=== PATIENT | male | born 1960 | race Caucasian/White ===

== ENCOUNTER 2018-01-01 07:24 | Outpatient (CLI) | payer OTHER ==
[~2018-01-01 07:24] MED LIST: GAS RELIEF125 M1 PO; IMODIUM A-D2 M2 PO; LOPERAMIDE2 MG PO; PERCOCET 5-3251 EACH PO; PROTONIX40 MG PO; QUESTRAN PACKET4 GM PO
== END 2018-01-01 07:40 | disposition home or self-care (01) ==
LOC: TOM 07:24
DX: K51.018 Ulcerative (chronic) pancolitis with other complication (principal)

== ENCOUNTER 2024-07-06 21:40 | Inpatient (IN) | payer OTHER ==
[~2024-07-06] VITALS: Ht 152.4 cm; Wt 74.8 kg
[~2024-07-06 21:40] MED LIST changes: +CIPRO500 MG PO; +CLONAZEPAM0.5 MG PO; +FENOFIBRATE150 MG PO; +METRONIDAZOLE500 MG PO; +UCERIS9 MG PO
[2024-07-06] MEDS ORDERED: FAMOTIDINE/PF 20 MG in 0.9 % SODIUM CHLORIDE 8 ML IV PUSH STA (22:23)
[2024-07-06] MEDS ORDERED: ONDANSETRON HCL 2 MG/ML VIAL IV ONE (22:30)
[2024-07-06] MEDS ORDERED: MEPERIDINE HCL/PF 50 MG/ML VIAL IM ONE (22:30)
[2024-07-06] MEDS ORDERED: 0.9 % SODIUM CHLORIDE 1,000 ML IV SCH (22:30)
[2024-07-06 23:18] LABS: HEMATOCRIT 41.6 % (39.0-48.0); HEMOGLOBIN 14.6 g/dL (13-16.00); MEAN CELL VOLUME 87.2 fL (80.0-100.00); MEAN CORPUSCULAR HEMOGLOBIN 30.6 pg (27.00-32.0); PLATELET COUNT 260 K/uL (150-450); RED BLOOD COUNT 4.77 M/uL (4.00-6.00); RED CELL DISTRIBUTION WIDTH 13.8 % (11.5-14.5)
[2024-07-06 23:36] LABS: ALBUMIN 3.5 gm/dL (3.4-5.0); BILIRUBIN TOTAL 0.42 mg/dL (0.3-1.2); CREATININE SERUM 0.91 mg/dL (0.70-1.30); GFR 84.42; GLOBULINA 3.7 G/DL (2.4-3.5); POTASSIUM 4.2 mEq/L (3.5-5.1); TOTAL PROTEIN 7.2 gm/dL (6.4-8.2)
[2024-07-06 23:39] LABS: INR 1.02; PROTHROMBIN TIME 11.1 SECONDS (9.0-11.5)
[2024-07-07] MEDS ORDERED: MEPERIDINE HCL/PF 50 MG/ML VIAL IM STA (01:51)
[2024-07-07] MEDS ORDERED: PROMETHAZINE HCL 50 MG/ML AMPUL IM STA (01:52)
[2024-07-07] MEDS ORDERED: MEPERIDINE HCL/PF 25 MG/ML VIAL IV STA (05:19)
[2024-07-07] MEDS ORDERED: MEPERIDINE HCL/PF 50 MG/ML VIAL IM ONE (09:00)
[2024-07-07] MEDS ORDERED: FAMOTIDINE/PF 20 MG in 0.9 % SODIUM CHLORIDE 100 ML IV SCH (10:16)
[2024-07-07 10:24] VITALS: BP 130/80; O2SAT 100
[2024-07-07] MEDS ORDERED: MEPERIDINE HCL/PF 25 MG/ML VIAL IM PRN (10:30)
[2024-07-07] MEDS ORDERED: 0.9 % SODIUM CHLORIDE 1,000 ML IV SCH (10:30)
[2024-07-07] MEDS ORDERED: ONDANSETRON HCL 4 MG in 0.9 % SODIUM CHLORIDE 50 ML IV PRN (10:30)
[2024-07-07] MEDS ORDERED: PIPERACILLIN/TAZOBACTAM SODIUM 3.375 GM in 0.9 % SODIUM CHLORIDE 100 ML IV SCH (12:00)
[2024-07-07 15:19] VITALS: BP 161/80; O2SAT 99
[2024-07-07 16:40] VITALS: BP 193/93; O2SAT 99
[2024-07-07] MEDS ORDERED: METRONIDAZOLE/SODIUM CHLORIDE 500 MG/100 ML PIGGYBACK IV SCH (17:00)
[2024-07-07] MEDS ORDERED: KETOROLAC TROMETHAMINE 30 MG VIAL IV PRN (22:00)
[2024-07-08 01:28] VITALS: BP 169/78; O2SAT 99
[2024-07-08 05:30] VITALS: BP 146/66
[2024-07-08 10:05] VITALS: BP 144/88; O2SAT 96
[2024-07-08] MEDS ORDERED: METOCLOPRAMIDE HCL 5 MG/ML VIAL IV SCH (10:54)
[2024-07-08 19:22] VITALS: BP 121/65; O2SAT 95
[2024-07-09 00:49] VITALS: BP 172/85; O2SAT 98
[2024-07-09 07:03] LABS: HEMATOCRIT 38.3 % (39.0-48.0); HEMOGLOBIN 13.4 g/dL (13-16.00); MEAN CELL VOLUME 87.3 fL (80.0-100.00); MEAN CORPUSCULAR HEMOGLOBIN 30.6 pg (27.00-32.0); MEAN CORPUSCULAR HGB CONC 35.1 g/dl (32.0-36.0); PLATELET COUNT 200 K/uL (150-450); RED BLOOD COUNT 4.39 M/uL (4.00-6.00); RED CELL DISTRIBUTION WIDTH 13.8 % (11.5-14.5)
[2024-07-09 08:00] VITALS: BP 161/85; O2SAT 97
[2024-07-09 08:03] LABS: CALCIUM 8.2 mg/dL (8.5-10.1); CREATININE SERUM 0.91 mg/dL (0.70-1.30); GFR 84.42
[2024-07-09] MEDS ORDERED: METHYLPREDNISOLONE SOD SUCC 40 MG VIAL IV SCH (10:43)
[2024-07-09] MEDS ORDERED: KETOROLAC TROMETHAMINE 30 MG VIAL IV PRN (14:15)
[2024-07-09 19:10] VITALS: BP 154/86; O2SAT 97
[2024-07-09 23:52] VITALS: BP 174/86; O2SAT 99
[2024-07-10 01:50] VITALS: BP 155/78
[2024-07-10 08:39] LABS: CALCIUM 8.5 mg/dL (8.5-10.1); CREATININE SERUM 0.72 mg/dL (0.70-1.30); GFR 110.61; POTASSIUM 4.53 mEq/L (3.5-5.1)
[2024-07-10 09:58] VITALS: BP 158/86; O2SAT 98
[2024-07-10] MEDS ORDERED: MORPHINE SULFATE 4 MG/ML CARTRIDGE IV PRN (14:30)
[2024-07-10] MEDS ORDERED: KETOROLAC TROMETHAMINE 30 MG VIAL IV PRN (15:54)
[2024-07-10 16:33] VITALS: BP 191/92; O2SAT 98
[2024-07-10] MEDS ORDERED: METHYLPREDNISOLONE SOD SUCC 40 MG VIAL IV SCH (17:00)
[2024-07-10] MEDS ORDERED: DIATRIZOATE MEGLUMINE, SODIUM 30 ML BOTTLE PO ONE (17:15)
[2024-07-10 23:57] VITALS: BP 122/65; O2SAT 98
[2024-07-11 06:10] LABS: HEMATOCRIT 39.7 % (39.0-48.0); HEMOGLOBIN 13.9 g/dL (13-16.00); MEAN CORPUSCULAR HEMOGLOBIN 30.8 pg (27.00-32.0); PLATELET COUNT 234 K/uL (150-450); RED BLOOD COUNT 4.51 M/uL (4.00-6.00); RED CELL DISTRIBUTION WIDTH 13.7 % (11.5-14.5)
[2024-07-11 06:41] LABS: CALCIUM 8.9 mg/dL (8.5-10.1); CREATININE SERUM 0.9 mg/dL (0.70-1.30); GFR 85.5; POTASSIUM 4.39 mEq/L (3.5-5.1)
[2024-07-11 08:29] VITALS: BP 187/91; O2SAT 98
[2024-07-11] MEDS ORDERED: ENALAPRILAT DIHYDRATE 1.25 MG/ML VIAL IV PRN (11:45)
[2024-07-11] MEDS ORDERED: INSULIN LISPRO 1,000 UNIT/10 ML UNITS SUBCUTANEO PRN (12:15)
[2024-07-11 18:09] VITALS: BP 134/72; O2SAT 99
[2024-07-12] VITALS: BP 129/78; O2SAT 98
[2024-07-12 06:13] LABS: HEMATOCRIT 34.9 % (39.0-48.0); HEMOGLOBIN 12.3 g/dL (13-16.00); MEAN CELL VOLUME 87.4 fL (80.0-100.00); MEAN CORPUSCULAR HEMOGLOBIN 30.7 pg (27.00-32.0); MEAN CORPUSCULAR HGB CONC 35.2 g/dl (32.0-36.0); PLATELET COUNT 206 K/uL (150-450); RED BLOOD COUNT 3.99 M/uL (4.00-6.00); RED CELL DISTRIBUTION WIDTH 13.6 % (11.5-14.5)
[2024-07-12 06:39] LABS: CALCIUM 8.4 mg/dL (8.5-10.1); CREATININE SERUM 0.78 mg/dL (0.70-1.30); GFR 100.85; POTASSIUM 4.56 mEq/L (3.5-5.1)
[2024-07-12 07:50] VITALS: BP 159/86; O2SAT 98
== END 2024-07-13 07:35 | disposition home or self-care (01) | DRG 389 ==
LOC: ER 21:42 → SEC-K 07-07 10:14 → SURG 07-07 10:14 → SEC-K 07-13 00:42
PROVIDERS: General Practice; Surgery; ADMIT Internal Medicine; ATTEND Internal Medicine
PROC: BW21YZZ Computerized Tomography (CT Scan) of Abdomen and Pelvis using Other Contrast (ICD-10-PCS; 2024-07-06)
PROC: 0D9670Z Drainage of Stomach with Drainage Device, Via Natural or Artificial Opening (ICD-10-PCS; principal; 2024-07-07)
PROC: BW21YZZ Computerized Tomography (CT Scan) of Abdomen and Pelvis using Other Contrast (ICD-10-PCS; 2024-07-10)
DX: K56.600 Partial intestinal obstruction, unspecified as to cause (principal); K50.90 Crohn's disease, unspecified, without complications

== ENCOUNTER 2025-01-05 20:54 | Emergency (ER) | payer OTHER ==
[~2025-01-05] VITALS: Ht 165.1 cm; Wt 74.8 kg
[2025-01-05] MEDS ORDERED: COLISTIMETHATE150 MG IJ (21:13)
[2025-01-05] MEDS ORDERED: FAMOTIDINE/PF 20 MG in 0.9 % SODIUM CHLORIDE 8 ML IV PUSH STA (22:00)
[2025-01-05] MEDS ORDERED: METHYLPREDNISOLONE SOD SUCC 125 MG VIAL ONE (22:14)
[2025-01-05] MEDS ORDERED: MORPHINE SULFATE 4 MG/ML VIAL IV ONE (22:15)
[2025-01-05] MEDS ORDERED: 0.9 % SODIUM CHLORIDE 1,000 ML IV SCH (22:15)
[2025-01-05] MEDS ORDERED: FAMOTIDINE/PF 20 MG/2 ML VIAL ONE (22:15)
[2025-01-05] MEDS ORDERED: METHYLPREDNISOLONE SOD SUCC 125 MG VIAL IV ONE (22:15)
[2025-01-05] MEDS ORDERED: DIATRIZOATE MEGLUMINE, SODIUM 30 ML BOTTLE ONE (22:36)
[2025-01-05 23:24] LABS: HEMATOCRIT 42.3 % (39.0-48.0); HEMOGLOBIN 14.4 g/dL (13-16.00); MEAN CELL VOLUME 85.9 fL (80.0-100.00); MEAN CORPUSCULAR HEMOGLOBIN 29.3 pg (27.00-32.0); MEAN CORPUSCULAR HGB CONC 34.1 g/dl (32.0-36.0); PLATELET COUNT 277 K/uL (150-450); RED BLOOD COUNT 4.92 M/uL (4.00-6.00); RED CELL DISTRIBUTION WIDTH 13.8 % (11.5-14.5)
[2025-01-05 23:52] LABS: ALBUMIN 3.1 gm/dL (3.4-5.0); BILIRUBIN TOTAL 0.4 mg/dL (0.3-1.2); CALCIUM 9.3 mg/dL (8.5-10.1); CREATININE SERUM 0.98 mg/dL (0.70-1.30); GFR 77.25; GLOBULINA 3.9 G/DL (2.4-3.5); POTASSIUM 3.81 mEq/L (3.5-5.1)
== END 2025-01-06 03:09 | disposition home or self-care (01) ==
LOC: ER 20:54
PROVIDERS: General Practice
DX: R10.31 Right lower quadrant pain (principal); K50.90 Crohn's disease, unspecified, without complications; I10 Essential (primary) hypertension